=== PATIENT | male | born 1960 | race Caucasian/White ===

== ENCOUNTER 2016-12-29 05:27 | Emergency (ER) | payer OTHER ==
--- NOTE | ~2016-12-29 | CR111 ---
[facility] A Service of [facility] [place] RADIOLOGY TEXT RESULTS PATIENT: LEN HEADLEY LOCATION: [facility] : 64 UNIT #: [id number] AGE: [address]: Fantasma Quinones MD SEX: M ORDER DR: [id number] [facility] [address] [place], [place] [address] [id number] E MR#: [id number] #: [id number] NAME: LEN HEADLEY : 1960 SEX: M STUDY DATE/TIME: 12/29/2016 6:16 UNIT: [facility] ROOM: STUDY DESCRIPTION: CR Finger 2 View 3rd Rt Attending Physician: Fantasma Quinones M.D. Ordering Physician: Melodie Gaston M.D. Primary Care Physician: Óscar Navarro M.D. MEDICAL IMAGING REPORT This report is preliminary unless electronic signature is present EXAM Three views of the right third finger. COMPARISON None. HISTORY 56-year-old male with swelling, pain and bleeding of the right third finger after smashing in a car door today. FINDINGS Bones are anatomically aligned. There is no evidence of acute fracture. No radiopaque foreign body. IMPRESSION No acute fracture, dislocation or radiopaque foreign body. Dictated by... Alex Peter M.D. THIS IS AN ELECTRONICALLY VERIFIED REPORT Alex Peter M.D. at 01/03/2017 7:07 PM BLM/pcl TD: 12/29/2016 10:07 JOB #: [id number] MEDICAL IMAGING REPORT Page 1 of 1 COPY
[~2016-12-29 05:27] MED LIST: IBUPROFEN200 M1 PO
== END 2016-12-29 08:50 | disposition home or self-care (01) ==
LOC: CED 05:27
DX: S60.031A Contusion of right middle finger without damage to nail, initial encounter (principal); F17.200 Nicotine dependence, unspecified, uncomplicated; W22.8XXA Striking against or struck by other objects, initial encounter; Y92.009 Unspecified place in unspecified non-institutional (private) residence as the place of occurrence of the external cause
CPT/HCPCS: 12001; 29280; 73140; 99283